=== PATIENT | male | born 1965 | race Caucasian/White ===

== ENCOUNTER 2017-12-20 10:19 | Outpatient (CLI) | payer OTHER ==
[~2017-12-20 10:19] MED LIST: CYCL-1 PO
== END 2017-12-20 23:59 | disposition home or self-care (01) ==
LOC: RAD 10:19
PROVIDERS: ATTEND Physician Assistant
DX: M51.36 Other intervertebral disc degeneration, lumbar region (principal); M48.061 Spinal stenosis, lumbar region without neurogenic claudication; M25.78 Osteophyte, vertebrae; Z72.89 Other problems related to lifestyle
CPT/HCPCS: 72148

== ENCOUNTER 2017-12-27 12:58 | Outpatient (CLI) | payer OTHER | END 2017-12-27 23:59 | disposition home or self-care (01) | LOC: CARD DIAG 12:58 | PROVIDERS: ATTEND Internal Medicine Interventional Cardiology | DX: I08.3 Combined rheumatic disorders of mitral, aortic and tricuspid valves (principal) | CPT/HCPCS: 93306 ==